=== PATIENT | male | born 1950 | race Caucasian/White ===

== ENCOUNTER 2024-02-22 17:15 | Inpatient (IN) | payer MEDICARE ==
[~2024-02-22] VITALS: Ht 172.7 cm; Wt 111.4 kg
[~2024-02-22 17:15] MED LIST: ATOR-2 PO; CALC-988 PO; CINN1CAP PO; CRAN300T PO; FAMO-1 PO; HYDR-3968 PO; HYDR4CRE2 TOP; NITR0.4T51 SL; RIVA10TA PO; SOTA80TA73 PO; TICA90TA PO; oxygen
[2024-02-22 17:53] LABS: ALANINE AMINOTRANSFERASE 110 U/L (12-78); ALBUMIN 2.3 G/DL (3.4-5.0); ALBUMIN/GLOBULIN RATIO 0.5 (1.1-1.5); ALKALINE PHOSPHATASE 179 IU/L (46-116); ANION GAP 9 (8-16); ASPARTATE AMINO TRANSFERASE 85 U/L (10-37); BASOPHILS % (AUTO) 0.1 % (0-1); BILIRUBIN,TOTAL 0.7 MG/DL (0.1-1.0); BLOOD UREA NITROGEN 36 MG/DL (7-18); CALCIUM 8.8 MG/DL (8.5-10.1); CHLORIDE 107 MMOL/L (99-107); CREATININE 1.09 MG/DL (0.60-1.10); EOSINOPHILS % (AUTO) 0 % (0-6); GLUCOSE 169 MG/DL (70-104); HEMATOCRIT 41.3 % (42.0-52.0); HEMOGLOBIN 13.4 g/dl (14.0-17.9); LYMPHOCYTES # (AUTO) 1.1 X10'3 (1.1-4.8); LYMPHOCYTES % (AUTO) 3.3 % (21-51); MEAN CORPUSCULAR HEMOGLOBIN 29.6 PG (27.0-31.0); MEAN CORPUSCULAR HGB CONC 32.5 g/dL (33.0-36.5); MEAN CORPUSCULAR VOLUME 91.2 FL (78-98); MEAN PLATELET VOLUME 8.7 FL (7.4-10.4); MONOCYTES # (AUTO) 0.8 X10'3 (0-0.9); MONOCYTES % (AUTO) 2.3 % (2-12); NEUTROPHILS # (AUTO) 31.5 X10'3 (1.8-7.7); NEUTROPHILS % (AUTO) 94.3 % (42-75); PLATELET COUNT 255 X10'3 (140-440); POTASSIUM 4.5 MMOL/L (3.5-5.1); RED BLOOD COUNT 4.52 X10'6 (4.70-6.10); RED CELL DISTRIBUTION WIDTH 14.3 % (11.5-14.5); SODIUM 142 MMOL/L (135-145); TOTAL PROTEIN 7.2 G/DL (6.4-8.2); eCRCL 57 ML/MIN; eGFR 66 ML/MIN
[2024-02-22] MEDS ORDERED: heparin 10,000 units/1 ML INJ IV PRN (18:00)
[2024-02-22] MEDS ORDERED: heparin 10,000 units/1 ML INJ IV ONE (18:00)
[2024-02-22 18:07] LABS: WHITE BLOOD COUNT 33.4 X10'3 (4.5-11.0)
[2024-02-22] MEDS ORDERED: iohexol 350MG/ML 100ml bottle IV ONE (18:15)
[2024-02-22] MEDS: MESSAGE TO NURSING IV ONE (18:48)
[2024-02-22] MEDS: heparin 25,000 UNIT/250ml bag 250 ML IV PRN (18:51)
[2024-02-22 19:43] LABS: BURR CELLS 1+; PLATELET ESTIMATE NORMAL; TOTAL CELLS COUNTED 100
[2024-02-22] MEDS ORDERED: magnesium hydroxide 30ml (MOM) UD suspension PO PRN (20:05)
[2024-02-22] MEDS ORDERED: mag hydrox/Alum hydrox/simeth 30ml oral suspension PO PRN (20:05)
[2024-02-22] MEDS ORDERED: magnesium sulf-water 2g/50mL 50 ML IV PRN (20:05)
[2024-02-22] MEDS ORDERED: potassium Cl 20 mEq SR tablet PO PRN ×2 (20:05)
[2024-02-22] MEDS ORDERED: potassium Cl 40MEQ/1/2NS 520ml 520 ML IV PRN (20:05)
[2024-02-22] MEDS ORDERED: magnesium Cl slow-release 64mg tablet PO PRN (20:05)
[2024-02-22] MEDS ORDERED: magnesium sulf-water 4G/100mL 100 ML IV PRN (20:05)
[2024-02-22] MEDS ORDERED: ondansetron/PF 4mg/2ml inj IV PRN (20:05)
[2024-02-22] MEDS: PERFLUTREN PROTEIN-A MICROSPHR (Optison) 0.22 MG/ML 3ML VIAL IV ONE (20:34)
[2024-02-22 20:42] LABS: HEMOGLOBIN A1C 6.3 % (4.5-6.2)
[2024-02-22] MEDS ORDERED: HYDROCODONE PO PRN (21:20)
[2024-02-22] MEDS ORDERED: ACETAMINOPHEN PO PRN (21:20)
[2024-02-22 22:00] VITALS: BP 145/71; PULSE 97; RESP 20; TEMP 97.8; O2SAT 96
[2024-02-22 22:09] LABS: INR 1.5 INR; PROTHROMBIN TIME 15.7 SECONDS (9.0-12.0)
[2024-02-22] MEDS: HEPARIN DRIP DVT/PE -**PHARMACIST TO DOSE IV SCH (22:15)
[2024-02-22] MEDS ORDERED: METO25TA6 PO (22:27)
[2024-02-22] MEDS: normal saline 1000ml 1,000 ML IV SCH (22:46)
[2024-02-23] VITALS (11 sets, daily range): BP systolic 102–132; BP diastolic 68–84; PULSE 68–96; RESP 16–24; TEMP 96.3–98.1; O2SAT 89–96
[2024-02-23 01:42] LABS: INR 1.5 INR; PROTHROMBIN TIME 15.3 SECONDS (9.0-12.0)
[2024-02-23] MEDS: MESSAGE TO NURSING IV ONE ×3 (01:55→18:17)
[2024-02-23 06:34] LABS: BASOPHILS # (AUTO) 0.1 X10'3 (0-0.2); BASOPHILS % (AUTO) 0.2 % (0-1); EOSINOPHILS % (AUTO) 0 % (0-6); HEMATOCRIT 39.5 % (42.0-52.0); HEMOGLOBIN 12.7 g/dl (14.0-17.9); LYMPHOCYTES % (AUTO) 3.7 % (21-51); MEAN CORPUSCULAR HEMOGLOBIN 29.3 PG (27.0-31.0); MEAN CORPUSCULAR HGB CONC 32.2 g/dL (33.0-36.5); MEAN PLATELET VOLUME 8.7 FL (7.4-10.4); MONOCYTES # (AUTO) 1.2 X10'3 (0-0.9); MONOCYTES % (AUTO) 4.4 % (2-12); NEUTROPHILS # (AUTO) 24.2 X10'3 (1.8-7.7); NEUTROPHILS % (AUTO) 91.7 % (42-75); PLATELET COUNT 236 X10'3 (140-440); RED BLOOD COUNT 4.34 X10'6 (4.70-6.10); RED CELL DISTRIBUTION WIDTH 14.5 % (11.5-14.5)
[2024-02-23 06:39] LABS: ALANINE AMINOTRANSFERASE 94 U/L (12-78); ALBUMIN 2.1 G/DL (3.4-5.0); ALBUMIN/GLOBULIN RATIO 0.4 (1.1-1.5); ALKALINE PHOSPHATASE 166 IU/L (46-116); ANION GAP 5 (8-16); ASPARTATE AMINO TRANSFERASE 61 U/L (10-37); BILIRUBIN,TOTAL 0.5 MG/DL (0.1-1.0); BLOOD UREA NITROGEN 36 MG/DL (7-18); CALCIUM 8.5 MG/DL (8.5-10.1); CHLORIDE 107 MMOL/L (99-107); CHOL/HDL RATIO 4.7 (0.00-4.99); CHOLESTEROL 80 MG/DL (0-200); GLUCOSE 179 MG/DL (70-104); HDL CHOLESTEROL 17 MG/DL (35-60); LDL CHOLESTEROL 54 MG/DL (50-100); MAGNESIUM 2.4 MG/DL (1.5-2.4); PHOSPHORUS 3.2 MG/DL (2.3-4.5); POTASSIUM 4.2 MMOL/L (3.5-5.1); SODIUM 140 MMOL/L (135-145); TOTAL CARBON DIOXIDE 27.8 MMOL/L (24-32); TOTAL PROTEIN 6.8 G/DL (6.4-8.2); TRIGLYCERIDES 78 MG/DL (20-135); eCRCL 69 ML/MIN; eGFR 82 ML/MIN
[2024-02-23 06:41] LABS: WHITE BLOOD COUNT 26.4 X10'3 (4.5-11.0)
[2024-02-23] MEDS: K and/or MAG REPLACEMENT MC SCH (08:00)
[2024-02-23 08:18] LABS: BURR CELLS 1+; ELLIPTOCYTES FEW; PLATELET ESTIMATE NORMAL; TOTAL CELLS COUNTED 100
[2024-02-23] MEDS: CefTRIAXone/D5W-Rocephin 1gm 50 ML IV SCH (08:26)
[2024-02-23] MEDS: docusate sod 100mg capsule PO SCH (08:27)
[2024-02-23] MEDS: azithromycin/NS 500mg/250ml 250 ML IV SCH (08:27)
[2024-02-23] MEDS: metoprolol tartrate 25mg tablet PO SCH (08:28)
[2024-02-23] MEDS: acetaminophen 325mg tablet PO PRN (08:29)
[2024-02-23] MEDS: sotalol 80mg tablet PO SCH (08:30)
[2024-02-23] MEDS: atorvastatin 20mg tablet PO SCH (08:33)
[2024-02-23] MEDS: furosemide 40mg/4ml inj IV SCH (13:16)
[2024-02-23] MEDS: ipratropium/albuterol 3ml nebule NEB SCH (16:14)
[2024-02-23] MEDS: methylPREDNISolone sod succ/PF 40mg inj. IV SCH (17:06)
[2024-02-23] MEDS: diatr meglu/diatrizoate 30ml oral sol.-(3 dose) bottle PO SCH (20:49)
[2024-02-24] VITALS (16 sets, daily range): BP systolic 125–150; BP diastolic 71–94; PULSE 64–95; RESP 17–24; TEMP 97.6–98.3; O2SAT 89–96
[2024-02-24 05:26] LABS: MEAN PLATELET VOLUME 8.9 FL (7.4-10.4)
[2024-02-24 05:30] LABS: BASOPHILS % (AUTO) 0.1 % (0-1); EOSINOPHILS % (AUTO) 0 % (0-6); HEMATOCRIT 41.1 % (42.0-52.0); HEMOGLOBIN 13.5 g/dl (14.0-17.9); LYMPHOCYTES % (AUTO) 4.4 % (21-51); MEAN CORPUSCULAR HEMOGLOBIN 30.1 PG (27.0-31.0); MEAN CORPUSCULAR HGB CONC 32.7 g/dL (33.0-36.5); MEAN CORPUSCULAR VOLUME 91.9 FL (78-98); MONOCYTES # (AUTO) 0.9 X10'3 (0-0.9); MONOCYTES % (AUTO) 4.1 % (2-12); NEUTROPHILS # (AUTO) 21.2 X10'3 (1.8-7.7); NEUTROPHILS % (AUTO) 91.4 % (42-75); PLATELET COUNT 264 X10'3 (140-440); RED BLOOD COUNT 4.48 X10'6 (4.70-6.10); RED CELL DISTRIBUTION WIDTH 14.5 % (11.5-14.5); WHITE BLOOD COUNT 23.2 X10'3 (4.5-11.0)
[2024-02-24 05:38] LABS: ALANINE AMINOTRANSFERASE 129 U/L (12-78); ALBUMIN 2.1 G/DL (3.4-5.0); ALBUMIN/GLOBULIN RATIO 0.5 (1.1-1.5); ALKALINE PHOSPHATASE 140 IU/L (46-116); ANION GAP 7 (8-16); ASPARTATE AMINO TRANSFERASE 89 U/L (10-37); BILIRUBIN,TOTAL 0.5 MG/DL (0.1-1.0); BLOOD UREA NITROGEN 39 MG/DL (7-18); BUN/CREATININE RATIO 42.9 (10.0-20.0); CALCIUM 8.4 MG/DL (8.5-10.1); CHLORIDE 108 MMOL/L (99-107); CREATININE 0.91 MG/DL (0.60-1.10); GLUCOSE 165 MG/DL (70-104); MAGNESIUM 2.4 MG/DL (1.5-2.4); PHOSPHORUS 2.8 MG/DL (2.3-4.5); POTASSIUM 4.4 MMOL/L (3.5-5.1); SODIUM 141 MMOL/L (135-145); TOTAL CARBON DIOXIDE 26.5 MMOL/L (24-32); TOTAL PROTEIN 6.6 G/DL (6.4-8.2); eCRCL 68 ML/MIN; eGFR 81 ML/MIN
[2024-02-24 05:42] LABS: APTT 48 SECONDS (22-32); INR 1.5 INR; PROTHROMBIN TIME 15.4 SECONDS (9.0-12.0)
[2024-02-24] MEDS: MESSAGE TO NURSING IV ONE ×3 (06:00→20:19)
[2024-02-24] MEDS ORDERED: iohexol 300mg/ml 100ml inj. ONE (10:27)
[2024-02-24] MEDS ORDERED: ondansetron 4mg rapidly disintigrating tab PO PRN (14:05)
[2024-02-24] MEDS: FLU VACC TS2024-25(6MOS UP)/PF 45 MCG/0.5 ML SYRINGE IMVAC ONE (15:53)
[2024-02-24] MEDS ORDERED: ipratropium/albuterol 3ml nebule NEB PRN (18:15)
[2024-02-24] MEDS ORDERED: guaiFENesin 200 MG/10 ML oral syrup UD cup PO PRN (18:15)
[2024-02-24] MEDS: furosemide 40mg/4ml inj IV ONE (19:11)
[2024-02-24] MEDS: ipratropium/albuterol 3ml nebule NEB SCH (21:07)
[2024-02-25] VITALS (15 sets, daily range): BP systolic 128–139; BP diastolic 75–90; PULSE 59–105; RESP 15–24; TEMP 97–98.1; O2SAT 88–95
[2024-02-25 03:03] LABS: BASOPHILS # (AUTO) 0.1 X10'3 (0-0.2); BASOPHILS % (AUTO) 0.3 % (0-1); EOSINOPHILS % (AUTO) 0 % (0-6); HEMATOCRIT 43.1 % (42.0-52.0); HEMOGLOBIN 13.9 g/dl (14.0-17.9); LYMPHOCYTES # (AUTO) 1.1 X10'3 (1.1-4.8); MEAN CORPUSCULAR HEMOGLOBIN 29.5 PG (27.0-31.0); MEAN CORPUSCULAR HGB CONC 32.3 g/dL (33.0-36.5); MEAN CORPUSCULAR VOLUME 91.3 FL (78-98); MEAN PLATELET VOLUME 8.9 FL (7.4-10.4); MONOCYTES # (AUTO) 0.5 X10'3 (0-0.9); MONOCYTES % (AUTO) 2.5 % (2-12); NEUTROPHILS # (AUTO) 19.9 X10'3 (1.8-7.7); NEUTROPHILS % (AUTO) 92.2 % (42-75); PLATELET COUNT 316 X10'3 (140-440); RED BLOOD COUNT 4.73 X10'6 (4.70-6.10); RED CELL DISTRIBUTION WIDTH 14.6 % (11.5-14.5); WHITE BLOOD COUNT 21.5 X10'3 (4.5-11.0)
[2024-02-25 03:15] LABS: INR 1.6 INR; PROTHROMBIN TIME 16.6 SECONDS (9.0-12.0)
[2024-02-25 03:24] LABS: ALANINE AMINOTRANSFERASE 112 U/L (12-78); ALBUMIN 2.2 G/DL (3.4-5.0); ALBUMIN/GLOBULIN RATIO 0.5 (1.1-1.5); ALKALINE PHOSPHATASE 130 IU/L (46-116); ANION GAP 6 (8-16); BILIRUBIN,TOTAL 0.7 MG/DL (0.1-1.0); BLOOD UREA NITROGEN 39 MG/DL (7-18); CALCIUM 8.3 MG/DL (8.5-10.1); CHLORIDE 105 MMOL/L (99-107); GLUCOSE 171 MG/DL (70-104); MAGNESIUM 2.5 MG/DL (1.5-2.4); PRO BRAIN NATRIURETIC PEPTIDE 10364 PG/ML (0-450); SODIUM 138 MMOL/L (135-145); TOTAL CARBON DIOXIDE 26.8 MMOL/L (24-32); TOTAL PROTEIN 6.8 G/DL (6.4-8.2); eCRCL 62 ML/MIN; eGFR 73 ML/MIN
[2024-02-25 03:26] LABS: ASPARTATE AMINO TRANSFERASE 55 U/L (10-37); PHOSPHORUS 3.4 MG/DL (2.3-4.5); POTASSIUM 4.6 MMOL/L (3.5-5.1)
[2024-02-25 06:35] LABS: HBSAG SCREEN Negative (Negative); HEPATITIS C VIRUS ANTIBODY Non Reactive (Non Reactive)
[2024-02-25] MEDS: furosemide 40mg/4ml inj IV SCH (07:56)
[2024-02-25 08:15] LABS: AFP,SERUM, TUMOR MARKER <1.8 ng/mL (0.0-8.4)
[2024-02-25] MEDS: MESSAGE TO NURSING IV ONE ×2 (10:42→18:25)
[2024-02-25] MEDS: furosemide 40mg/4ml inj IV ONE (13:10)
[2024-02-25] MEDS ORDERED: iohexol 300mg/ml 100ml inj. ONE (13:37)
[2024-02-25] MEDS: rivaroxaban 15mg tablet PO SCH (20:10)
[2024-02-25] MEDS: methylPREDNISolone sod succ/PF 40mg inj. IV SCH (20:12)
[2024-02-26] VITALS (16 sets, daily range): BP systolic 111–134; BP diastolic 66–93; PULSE 55–88; RESP 15–20; TEMP 97–97.5; O2SAT 90–95
[2024-02-26 05:39] LABS: BASOPHILS % (AUTO) 0.1 % (0-1); EOSINOPHILS % (AUTO) 0 % (0-6); HEMATOCRIT 43.5 % (42.0-52.0); HEMOGLOBIN 14.1 g/dl (14.0-17.9); LYMPHOCYTES # (AUTO) 0.6 X10'3 (1.1-4.8); LYMPHOCYTES % (AUTO) 3.9 % (21-51); MEAN CORPUSCULAR HEMOGLOBIN 29.8 PG (27.0-31.0); MEAN CORPUSCULAR HGB CONC 32.5 g/dL (33.0-36.5); MEAN CORPUSCULAR VOLUME 91.7 FL (78-98); MEAN PLATELET VOLUME 8.5 FL (7.4-10.4); MONOCYTES # (AUTO) 0.5 X10'3 (0-0.9); MONOCYTES % (AUTO) 3.3 % (2-12); NEUTROPHILS # (AUTO) 13.8 X10'3 (1.8-7.7); NEUTROPHILS % (AUTO) 92.7 % (42-75); PLATELET COUNT 361 X10'3 (140-440); RED BLOOD COUNT 4.74 X10'6 (4.70-6.10); RED CELL DISTRIBUTION WIDTH 14.6 % (11.5-14.5); WHITE BLOOD COUNT 14.9 X10'3 (4.5-11.0)
[2024-02-26 05:49] LABS: PROTHROMBIN TIME 20.2 SECONDS (9.0-12.0)
[2024-02-26 06:08] LABS: ALANINE AMINOTRANSFERASE 97 U/L (12-78); ALBUMIN 2.2 G/DL (3.4-5.0); ALBUMIN/GLOBULIN RATIO 0.5 (1.1-1.5); ALKALINE PHOSPHATASE 112 IU/L (46-116); ANION GAP 7 (8-16); ASPARTATE AMINO TRANSFERASE 43 U/L (10-37); BILIRUBIN,TOTAL 0.5 MG/DL (0.1-1.0); BLOOD UREA NITROGEN 39 MG/DL (7-18); BUN/CREATININE RATIO 40.2 (10.0-20.0); CALCIUM 8.4 MG/DL (8.5-10.1); CHLORIDE 104 MMOL/L (99-107); CREATININE 0.97 MG/DL (0.60-1.10); GLUCOSE 172 MG/DL (70-104); MAGNESIUM 2.7 MG/DL (1.5-2.4); POTASSIUM 4.1 MMOL/L (3.5-5.1); SODIUM 141 MMOL/L (135-145); TOTAL CARBON DIOXIDE 30.4 MMOL/L (24-32); TOTAL PROTEIN 6.5 G/DL (6.4-8.2); eCRCL 64 ML/MIN; eGFR 75 ML/MIN
[2024-02-26] MEDS ORDERED: rivaroxaban 10mg tablet PO SCH (08:00)
[2024-02-27] VITALS (15 sets, daily range): BP systolic 112–135; BP diastolic 71–85; PULSE 47–89; RESP 13–21; TEMP 97–98.2; O2SAT 87–94
[2024-02-27 05:43] LABS: BASOPHILS % (AUTO) 0 % (0-1); EOSINOPHILS % (AUTO) 0 % (0-6); HEMATOCRIT 44.9 % (42.0-52.0); HEMOGLOBIN 14.7 g/dl (14.0-17.9); LYMPHOCYTES # (AUTO) 0.6 X10'3 (1.1-4.8); LYMPHOCYTES % (AUTO) 3.7 % (21-51); MEAN CORPUSCULAR HEMOGLOBIN 29.9 PG (27.0-31.0); MEAN CORPUSCULAR HGB CONC 32.8 g/dL (33.0-36.5); MEAN CORPUSCULAR VOLUME 91.1 FL (78-98); MEAN PLATELET VOLUME 8.3 FL (7.4-10.4); MONOCYTES # (AUTO) 0.5 X10'3 (0-0.9); MONOCYTES % (AUTO) 3.5 % (2-12); NEUTROPHILS # (AUTO) 13.9 X10'3 (1.8-7.7); NEUTROPHILS % (AUTO) 92.8 % (42-75); PLATELET COUNT 376 X10'3 (140-440); RED BLOOD COUNT 4.93 X10'6 (4.70-6.10); RED CELL DISTRIBUTION WIDTH 14.4 % (11.5-14.5); WHITE BLOOD COUNT 14.9 X10'3 (4.5-11.0)
[2024-02-27 05:48] LABS: INR 2.2 INR; PROTHROMBIN TIME 21.6 SECONDS (9.0-12.0)
[2024-02-27 05:56] LABS: ALANINE AMINOTRANSFERASE 79 U/L (12-78); ALBUMIN 2.2 G/DL (3.4-5.0); ALBUMIN/GLOBULIN RATIO 0.5 (1.1-1.5); ALKALINE PHOSPHATASE 101 IU/L (46-116); ANION GAP 4 (8-16); ASPARTATE AMINO TRANSFERASE 30 U/L (10-37); BILIRUBIN,TOTAL 0.6 MG/DL (0.1-1.0); BLOOD UREA NITROGEN 37 MG/DL (7-18); BUN/CREATININE RATIO 40.2 (10.0-20.0); CALCIUM 8.4 MG/DL (8.5-10.1); CHLORIDE 104 MMOL/L (99-107); CREATININE 0.92 MG/DL (0.60-1.10); GLUCOSE 160 MG/DL (70-104); MAGNESIUM 2.5 MG/DL (1.5-2.4); PHOSPHORUS 3.7 MG/DL (2.3-4.5); POTASSIUM 4.1 MMOL/L (3.5-5.1); SODIUM 142 MMOL/L (135-145); TOTAL CARBON DIOXIDE 34.1 MMOL/L (24-32); TOTAL PROTEIN 6.4 G/DL (6.4-8.2); eCRCL 67 ML/MIN; eGFR 80 ML/MIN
[2024-02-27] MEDS: losartan 50mg tablet PO SCH (12:23)
[2024-02-27] MEDS: furosemide 40mg/4ml inj IV ONE (12:24)
[2024-02-27] MEDS: metolazone 2.5mg tablet PO SCH (13:15)
[2024-02-27] MEDS: DAPAGLIFLOZIN 10MG TABLET PO SCH (13:15)
[2024-02-28] VITALS (14 sets, daily range): BP systolic 110–120; BP diastolic 63–83; PULSE 64–84; RESP 12–73; TEMP 96.9–98; O2SAT 78–98
[2024-02-28 07:36] LABS: BASOPHILS # (AUTO) 0.1 X10'3 (0-0.2); BASOPHILS % (AUTO) 0.3 % (0-1); EOSINOPHILS % (AUTO) 0 % (0-6); HEMATOCRIT 49.9 % (42.0-52.0); HEMOGLOBIN 16.3 g/dl (14.0-17.9); LYMPHOCYTES # (AUTO) 0.7 X10'3 (1.1-4.8); LYMPHOCYTES % (AUTO) 4.2 % (21-51); MEAN CORPUSCULAR HGB CONC 32.6 g/dL (33.0-36.5); MEAN CORPUSCULAR VOLUME 92.1 FL (78-98); MEAN PLATELET VOLUME 8.3 FL (7.4-10.4); MONOCYTES # (AUTO) 0.7 X10'3 (0-0.9); MONOCYTES % (AUTO) 4.2 % (2-12); NEUTROPHILS # (AUTO) 14.7 X10'3 (1.8-7.7); NEUTROPHILS % (AUTO) 91.3 % (42-75); PLATELET COUNT 436 X10'3 (140-440); RED BLOOD COUNT 5.42 X10'6 (4.70-6.10); RED CELL DISTRIBUTION WIDTH 14.2 % (11.5-14.5); WHITE BLOOD COUNT 16.1 X10'3 (4.5-11.0)
[2024-02-28 07:50] LABS: ALANINE AMINOTRANSFERASE 84 U/L (12-78); ALBUMIN 2.2 G/DL (3.4-5.0); ALBUMIN/GLOBULIN RATIO 0.5 (1.1-1.5); ALKALINE PHOSPHATASE 98 IU/L (46-116); ANION GAP 4 (8-16); ASPARTATE AMINO TRANSFERASE 30 U/L (10-37); BILIRUBIN,TOTAL 0.9 MG/DL (0.1-1.0); BLOOD UREA NITROGEN 42 MG/DL (7-18); BUN/CREATININE RATIO 30.4 (10.0-20.0); CALCIUM 8.9 MG/DL (8.5-10.1); CHLORIDE 98 MMOL/L (99-107); CREATININE 1.38 MG/DL (0.60-1.10); GLUCOSE 168 MG/DL (70-104); POTASSIUM 4.2 MMOL/L (3.5-5.1); SODIUM 141 MMOL/L (135-145); TOTAL CARBON DIOXIDE 39.5 MMOL/L (24-32); TOTAL PROTEIN 6.5 G/DL (6.4-8.2); eCRCL 45 ML/MIN; eGFR 50 ML/MIN
[2024-02-28] MEDS ORDERED: PRED10TA23 PO (09:54)
[2024-02-28] MEDS ORDERED: FURO-149 PO (09:54)
[2024-02-28] MEDS ORDERED: CEFD300C3 PO (09:54)
[2024-02-28] MEDS ORDERED: RIVA20TA PO (12:21)
[2024-02-28] MEDS: methylPREDNISolone sod succ/PF 40mg inj. IV SCH (12:53)
[2024-02-28] MEDS: metoprolol succinate 25mg (24-HOUR) SR. Tablet PO SCH (12:54)
[2024-02-28] MEDS ORDERED: LISI5TAB22 PO (19:05)
[2024-02-29] VITALS (8 sets, daily range): BP systolic 109–121; BP diastolic 76–87; PULSE 62–92; RESP 17–20; TEMP 97.4–97.9; O2SAT 92–97
[2024-02-29 08:12] LABS: ALANINE AMINOTRANSFERASE 85 U/L (12-78); ALBUMIN 2.4 G/DL (3.4-5.0); ALBUMIN/GLOBULIN RATIO 0.5 (1.1-1.5); ALKALINE PHOSPHATASE 101 IU/L (46-116); ANION GAP 4 (8-16); ASPARTATE AMINO TRANSFERASE 24 U/L (10-37); BILIRUBIN,TOTAL 1.2 MG/DL (0.1-1.0); BLOOD UREA NITROGEN 50 MG/DL (7-18); BUN/CREATININE RATIO 42.7 (10.0-20.0); CALCIUM 9.3 MG/DL (8.5-10.1); CHLORIDE 96 MMOL/L (99-107); CREATININE 1.17 MG/DL (0.60-1.10); GLUCOSE 151 MG/DL (70-104); POTASSIUM 3.9 MMOL/L (3.5-5.1); SODIUM 139 MMOL/L (135-145); TOTAL CARBON DIOXIDE 39.4 MMOL/L (24-32); TOTAL PROTEIN 6.9 G/DL (6.4-8.2); eCRCL 53 ML/MIN; eGFR 61 ML/MIN
[2024-02-29 08:20] LABS: BASOPHILS % (AUTO) 0.1 % (0-1); EOSINOPHILS % (AUTO) 0 % (0-6); HEMATOCRIT 53.8 % (42.0-52.0); LYMPHOCYTES # (AUTO) 0.9 X10'3 (1.1-4.8); LYMPHOCYTES % (AUTO) 5.2 % (21-51); MEAN CORPUSCULAR HEMOGLOBIN 30.5 PG (27.0-31.0); MEAN CORPUSCULAR HGB CONC 33.5 g/dL (33.0-36.5); MEAN CORPUSCULAR VOLUME 91.2 FL (78-98); MEAN PLATELET VOLUME 8.6 FL (7.4-10.4); MONOCYTES # (AUTO) 1.3 X10'3 (0-0.9); MONOCYTES % (AUTO) 7.5 % (2-12); NEUTROPHILS # (AUTO) 15.7 X10'3 (1.8-7.7); NEUTROPHILS % (AUTO) 87.2 % (42-75); PLATELET COUNT 471 X10'3 (140-440); RED CELL DISTRIBUTION WIDTH 14.4 % (11.5-14.5); WHITE BLOOD COUNT 18.1 X10'3 (4.5-11.0)
[2024-02-29] MEDS: lisinopril 5mg tablet PO SCH (09:25)
[2024-02-29] MEDS ORDERED: RIVA15TA PO (14:43)
[2024-03-18] MEDS ORDERED: rivaroxaban 20mg tablet PO SCH (18:00)
== END 2024-02-29 15:37 | disposition home health service (06) | DRG 871 ==
LOC: ER 17:16 → ED HOLD 20:23 → PCU 3S 02-23 00:08
PROVIDERS: ADMIT Internal Medicine Pulmonary Disease; ATTEND Family Medicine
PROC: BW211ZZ Computerized Tomography (CT Scan) of Abdomen and Pelvis using Low Osmolar Contrast (ICD-10-PCS; principal; 2024-02-24)
DX: A41.9 Sepsis, unspecified organism (principal); I21.A1 Myocardial infarction type 2; J18.9 Pneumonia, unspecified organism; J96.21 Acute and chronic respiratory failure with hypoxia; J96.22 Acute and chronic respiratory failure with hypercapnia; I50.23 Acute on chronic systolic (congestive) heart failure; J44.1 Chronic obstructive pulmonary disease with (acute) exacerbation; J44.0 Chronic obstructive pulmonary disease with (acute) lower respiratory infection; I48.21 Permanent atrial fibrillation; I82.511 Chronic embolism and thrombosis of right femoral vein; Z20.822 Contact with and (suspected) exposure to COVID-19; R74.01 Elevation of levels of liver transaminase levels; J84.10 Pulmonary fibrosis, unspecified; I11.0 Hypertensive heart disease with heart failure; R16.0 Hepatomegaly, not elsewhere classified; I25.10 Atherosclerotic heart disease of native coronary artery without angina pectoris; G47.33 Obstructive sleep apnea (adult) (pediatric); I25.2 Old myocardial infarction; Z79.01 Long term (current) use of anticoagulants; Z79.899 Other long term (current) drug therapy; Z95.5 Presence of coronary angioplasty implant and graft; Z87.891 Personal history of nicotine dependence
CPT/HCPCS: 36415; 71045; 71046; 71260; 74178; 76700; 80053; 80061; 82103; 83036; 83605; 83735; 83880; 84100; 84145; 84484; 85007; 85025; 85610; 85730; 86803; 87040; 87081; 87340; 87522; 87811; 90686; 93005; 93306; 94640; 94760; 97110; 97116; 97161; 97530; 97535; 99291; G0378; J0456; J0696; J1644; J1940; J2919; J7030; J7040; Q9963; Q9967